=== PATIENT | female | born 1985 | race Caucasian/White ===

== ENCOUNTER 2023-08-13 11:12 | Emergency (ER) | payer BC, SELFPAY ==
[2023-08-13 11:18] VITALS: BP 111/72
--- NOTE | 2023-08-13 12:28 | ED.GENMED ---
History of Present Illness
General
Chief Complaint: Musculo-Skeletal Complaint
Source: patient
Exam Limitations: none
Time Seen by Provider: 08/13/23 12:09
Nursing documentation reviewed up to this point in time: agreed with
Travel History
Have you had any contact with someone who has COVID-19?: No
Do you have any symptoms of coronavirus? Fever > 100 degrees, chills, cough, shortness of breath, sore throat, loss of taste or smell, muscle aches, or headache?: No
History of Present Illness
History of Present Illness:
Patient is a 38-year-old [id number] female who presents to the emergency department with multiple migratory joint pains that started approximately week ago in the left hip and then went into the left shoulder while the left hip resolved.
This was followed by pain in both shoulders and then today was in both hands. Yesterday was in the right knee. Patient denies weight loss or skin lesions. Patient denies fever or chills. Patient denies any recent illnesses or injuries. Patient
denies any family history of inflammatory arthritis. Patient denies any GI or symptoms.
Past History
Past History
ED Past Medical History: None
ED Past Surgical History: Orthopedic
Social History
Tobacco: Non-smoker
Review of Systems
Review of Systems
All Other Systems: ROS reviewed and negative except as documented in HPI and ROS
Constitutional: Denies fever, weight loss or chills
EENT: Reports no symptoms
ABD/GI: Reports no symptoms
: Reports no symptoms
Musculoskeletal: Reports joint pain
Skin: Reports no symptoms
Hematologic/Lymphatic: Reports no symptoms
Phy Exam
Physical Exam
Physical Exam:
Physical Exam
General: minimal distress, alert and appropriate, well nourished, well hydrated
HENT: Normocephalic, supple with no lymphadenopathy, no thyromegaly
Eyes: Clear sclera, conjuctiva without injection
Heart: Regular rhythm and rate. No S3, S4. No murmur.
Lungs: No respiratory distress, no stridor, lung sounds clear and equal bilaterally
Abdomen: Soft, nontender, no organomegaly, no CVA tenderness, BS good
Neuro: Alert and oriented x 3, CN II - XII intact, no motor focality, no cerebellar dysfunction
Skin: no rash
Psychiatric: well kept. interactive and cooperative
Extremities: No edema, cyanosis, tenderness, Good and equal peripheral pulses.. Full range of motion of major and moderate joints with no pain or restriction.
Scores
Heart Failure Risk
Heart Failure Risk Score: Not Applicable
Heart Score for Chest Pain Patients
STEMI patient?: Not applicable
Withdrawal Assessment of Alcohol
Withdrawal Assessment Completed?: Not applicable
Course
Orders/Labs/Results
Orders:
Orders
08/13/23 12:27
Ketorolac [Toradol] 30 mg IM NOW STA
08/13/23 13:09
CRP [C-Reactive Protein] Urgent
Complete Blood Count/With Diff Urgent
Comprehensive Metabolic Panel Urgent
Sed Rate [Erythrocyte Sed Rate] Urgent
08/13/23 14:20
Add On- LAB Urgent
Tests Added?: lyme progressive
08/13/23 13:09
08/13/23 13:09
Vital Signs
Initial and Last Documented VS:
Initial Vital Signs
Temp Pulse Resp BP Pulse Ox
97.5 F 77 18 111/72 100
08/13/23 11:18 08/13/23 11:18 08/13/23 11:18 08/13/23 11:18 08/13/23 11:18
Last Documented Vital Signs
Temp Pulse Resp BP Pulse Ox
97.5 F 77 18 111/72 100
08/13/23 11:18 08/13/23 11:18 08/13/23 11:18 08/13/23 11:18 08/13/23 11:18
*Radiology
Radiology exam reviewed: other (na)
*Pulse Oximetry
Patient hypoxic: no
*EKG
Interpreted by ED Provider?: NA
*Geospatial Information Technologist Interpretation
Rate: Geospatial Information Technologist- N/A
*Critical Care Note
Total Time (30-74mins, 75-104mins- exclusive of procedures): Not Applicable
Update Note
Update Note:
Unsure the etiology of the patient's arthropathy. Unsure if it is inflammatory or not. Patient's CRP and lab work are unremarkable. Awaiting the Lyme titer. Patient will be placed on anti-inflammatories and referred to rheumatology.
ED Attending Note
-
Portions of this chart may have been created with voice recognition software.� Occasional wrong word or��sound alike� substitutions may have occurred due to the inherent limitations of voice recognition software.
Discharge Plan
Departure
Patient Disposition: Home (Routine Discharge)
Date of Disposition: 08/13/23
Time of Disposition: 14:22
Patient with high blood pressure during this ER visit?: No
Condition: Fair
Covid-19: Not Applicable
Discharge Problem:
Arthritis/arthropathy of multiple joints
Instructions: Muscle and Bone Pain (DC), Using Cold for Pain
Prescriptions:
New
celecoxib [Celebrex] 100 mg capsule
100 mg PO BID Qty: 20 0RF
Referrals:
Silvia Vizcaino DO [Family Provider] - Follow up in 5-7 days
Sherine Moore MD [Active] - Call in 1-3 days for appt
Interventions
Interventions:
*Risk Screen - Suicide Last Done: 08/13/23 11:18
*General Assessment Last Done: 08/13/23 11:18
*Neglect/Abuse Screening Last Done: 08/13/23 11:18
ED- Fall Risk Assessment Last Done: 08/13/23 13:15
ED-Musculoskeletal Assessment Last Done: 08/13/23 13:15
Discharge Date and Time
Print Language: FRISIAN
[2023-08-13] MEDS: TORADOL 30 MG IM (13:10)
[2023-08-13 13:21] LABS: % Basophils 0.4 % (0-2); % Eosinophils 0.5 % (0-6); % Immature Granulocytes 0.3 % (0-0.5); % Lymphocytes 30.8 % (20.5-51.1); % Monocytes 6.5 % (1.7-9.3); % Neutrophils 61.5 % (42.2-75.2); Absolute Lymphocytes 2.3 10^3/uL (1.2-3.4); Absolute Monocytes 0.5 10^3/uL (0.1-0.6); Absolute Neutrophils 4.7 10^3/uL (1.4-6.5); Hematocrit 38.7 % (37.0-47.0); Hemoglobin 13.5 g/dL (12.0-16.0); Mean Corp Hgb Conc. 34.9 g/dL (33.0-37.0); Mean Corpuscular Hgb 30.3 pg (27.0-31.0); Mean Corpuscular Volume 86.8 fL (81.0-99.0); Mean Platelet Volume 8.9 fL (7.4-10.4); Nucleated Red Blood Cells % 0 %; Platelet Count 331 10^3/uL (130-400); Red Blood Cell Count 4.46 10^6/uL (4.20-5.40); Red Cell Dist. Width 11.5 % (11.5-14.5); White Blood Cell Count 7.6 10^3/uL (4.8-10.8)
[2023-08-13 13:33] LABS: ALT (SGPT) 25 U/L (0-35); AST (SGOT) 28 U/L (14-36); Albumin 4.1 g/dl (3.5-5.0); Alkaline Phosphatase 65 U/L (38-126); Blood Urea Nitrogen 15 mg/dl (7-17); Calcium 9.5 mg/dl (8.4-10.2); Carbon Dioxide 28 mmol/L (22-30); Chloride 102 mmol/L (98-107); Glucose 81 mg/dl (70-99); Potassium 4.5 mmol/L (3.5-5.1); Sodium 136 mmol/L (135-145); Total Bilirubin 0.5 mg/dl (0.2-1.3); eGFR > 60.00
[2023-08-13 13:36] LABS: C-Reactive Protein < 5.00 mg/L (0.0-10.00)
[2023-08-13 14:21] LABS: Erythrocyte Sed Rate 11 mm/hour (0-20)
[2023-08-13 14:54] VITALS: BP 112/70
[2023-08-14 16:17] LABS: Lyme Antibody Screen, EIA Negative (Negative)
== END 2023-08-13 15:09 | disposition home or self-care (01) ==
LOC: EMR 11:12
PROVIDERS: EMERGENCY PHYSICIAN Emergency Medicine; FAMILY PHYSICIAN Family Medicine
DX: M19.09 Primary osteoarthritis, other specified site (principal); M19.90 Unspecified osteoarthritis, unspecified site; M25.511 Pain in right shoulder; M25.512 Pain in left shoulder; M79.642 Pain in left hand; M79.641 Pain in right hand
CPT/HCPCS: 99284; 96372; 80053; 85025; 85652; 86140; 86618